=== PATIENT | male | born 1995 | race Caucasian/White ===

== ENCOUNTER 2018-03-19 12:01 | Emergency (ER) | payer BC ==
--- NOTE | 2018-03-19 12:15 | EDPHY ---
H & P Stated Complaint: R flank pain, nausea, poss syncopal episode last night hit forehead Time Seen by Provider: 03/19/18 12:14 HPI/ROS: HPI: This is a 23-year-old male who presents with Chief Complaint: R flank pain, nausea, poss syncopal episode last night hit forehead Location: Right flank Quality: Pain Duration: 24 hr Signs and Symptoms: no fever, + nausea, + vomiting, no hematemesis, no blood in stool, no abdominal bloating, no diarrhea, + back pain, no urinary symptoms, no testicular/groin pain, no indigestion, no chest pain, no shortness of breath Timing: Acute, constant Severity: Moderate Context: Patient presents with sudden onset of right flank pain that started yesterday afternoon and that remains constant, moderate in intensity. Patient reports that he has nausea and has vomited 2 times his stomach contents. He reports that he has urinary hesitancy. He was trying to urinate yesterday evening and felt extreme pain and started to feel lightheaded and hit his forehead on the wall. Denies LOC, amnesia, neck pain. Patient reports that he has a history of kidney stones and last 1 being 2 years ago. No history of lithotripsy or ureteral stent. Does not have a urologist. Denies fever. Advises that tetanus is current. Had a bowel movement yesterday. 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 Modifying Factors: None Comment: ROS: A comprehensive 10 system review of systems is otherwise negative aside from elements mentioned in the history of present illness. MEDICAL/SURGICAL/SOCIAL HISTORY: Medical history: Depression, kidney stone Surgical history: Denies Social history: Smoker. Denies drug use. Family history noncontributory. CONSTITUTIONAL: Moderate distress, nontoxic-appearing, adult white male, awake and alert HEENT: Superficial well-healing abrasion noted to left forehead; no surrounding erythema; no active bleeding. normocephalic, PERRL, EOMI. Nares patent; no rhinorrhea; no nasal mucosal edema. Tympanic membranes clear. Oropharynx clear, extremely poor dentition with dental cavities throughout, no exudate and moist pink mucosa. Airway patent. No lymphadenopathy. No meningismus. Cardiovascular: Normal S1/S2, regular rate, regular rhythm, without murmur rub or gallop. PULMONARY/CHEST: Symmetrical and nontender. Clear to auscultation bilaterally. Good air movement. No accessory muscle usage. ABDOMEN: Soft, nondistended, moderate right flank tenderness, no right lower quadrant tenderness, no rebound, no guarding, no peritoneal signs, no masses or organomegaly. No CVAT. Bowel Sounds heard x4 quadrants. EXTREMITIES: 2/2 pulses, strength 5/5, no deformities, no clubbing, no cyanosis or edema. NEUROLOGICAL: no focal neuro deficits. GCS 15. SKIN: Warm and dry, no erythema. no rash. Good capillary refill. Source: Patient Exam Limitations: No limitations - Medical/Surgical History Hx Asthma: No Hx Chronic Respiratory Disease: No Hx Diabetes: No Hx Cardiac Disease: No Hx Renal Disease: No Hx Cirrhosis: No Hx Alcoholism: No Hx HIV/AIDS: No Hx Splenectomy or Spleen Trauma: No Other PMH: denies - Social History Smoking Status: Current every day smoker Constitutional: Initial Vital Signs Temperature (C) 37.0 C 03/19/18 12:03 Heart Rate 78 03/19/18 12:03 Respiratory Rate 16 03/19/18 12:03 Blood Pressure 118/82 H 03/19/18 12:03 O2 Sat (%) 97 03/19/18 12:03 O2 Delivery Mode Room Air Allergies/Adverse Reactions: No Known Allergies Allergy (Unverified 03/19/18 12:02) Home Medications: Medication Instructions Recorded Gabapentin 03/19/18 Zoloft 25mg (*) 03/19/18 Medical Decision Making - Diagnostics Imaging Results: Imaging Impressions Abdomen/Pelvis CT 03/19/18 12:44 IMPRESSION: 1. No acute abdominopelvic inflammatory mass or ascites 2. No evidence of radiopaque nephrolithiasis. Attention: This CT examination is specifically designed to evaluate patients who are clinically suspected of having acute obstructive uropathy. This examination does not use radiographic contrast and provides only a limited evaluation of the abdomen, pelvis and retroperitoneum. If there is further clinical suspicion for pathological conditions other than obstructive uropathy, a complete CT evaluation of the abdomen and pelvis utilizing intravenous and enteric contrast should be considered. Susan Sims was notified of these findings by telephone at 1:45 PM on 03/19/2018 ED Course/Re-evaluation: Vital signs reviewed and stable upon arrival. No systemic signs. IV access and laboratory studies obtain. Urinalysis and CT abdomen and pelvis without contrast ordered Given IV Toradol 30 mg, IV promethazine 12.5 mg Labs reviewed. No leukocytosis/anemia/platelet dysfunction/elevated LFTs/ pancreatitis 1340: Called by radiologist who advised that there is no signs of appendicitis , stone, obstruction, colitis, hydronephrosis. 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 1348: Reassessed patient. Reports adequate relief of pain. Still not able to give urine sample. Will give another 1 L normal saline Urinalysis shows no signs of infection, no hematuria. Advised supportive care and follow up with PCP. This patient was seen under the supervision of my secondary supervising physician. I evaluated care for this patient independently. Discussed this patient with Dr. Landers. Differential Diagnosis: Flank pain including but not limited to musculoskeletal causes, kidney stone, pyelonephritis, shingles, and intra-abdominal causes such as diverticulitis and appendicitis. - Data Points Laboratory Results: Laboratory Results 03/19/18 11:50 03/19/18 11:50 03/19/18 03/19/18 03/19/18 14:00 11:50 11:50 WBC 8.12 10^3/uL 10^3/uL (3.80-9.50) RBC 5.02 10^6/uL 10^6/uL (4.40-6.38) Hgb 16.1 g/dL g/dL (13.7-17.5) Hct 45.2 % % (40.0-51.0) MCV 90.0 fL fL (81.5-99.8) MCH 32.1 pg pg (27.9-34.1) MCHC 35.6 g/dL g/dL (32.4-36.7) RDW 12.6 % % (11.5-15.2) Plt Count 212 10^3/uL 10^3/uL (150-400) MPV 10.3 fL fL (8.7-11.7) Neut % (Auto) 63.3 % % (39.3-74.2) Lymph % (Auto) 27.3 % % (15.0-45.0) [place] % (Auto) 5.7 % % (4.5-13.0) Eos % (Auto) 2.8 % % (0.6-7.6) Baso % (Auto) 0.5 % % (0.3-1.7) Nucleat RBC Rel Count 0.0 % % (0.0-0.2) Absolute Neuts (auto) 5.14 10^3/uL 10^3/uL (1.70-6.50) Absolute Lymphs (auto) 2.22 10^3/uL 10^3/uL (1.00-3.00) Absolute Monos (auto) 0.46 10^3/uL 10^3/uL (0.30-0.80) Absolute Eos (auto) 0.23 10^3/uL 10^3/uL (0.03-0.40) Absolute Basos (auto) 0.04 10^3/uL 10^3/uL (0.02-0.10) Absolute Nucleated RBC 0.00 10^3/uL 10^3/uL (0-0.01) Immature Gran % 0.4 % % (0.0-1.1) Immature Gran # 0.03 10^3/uL 10^3/uL (0.00-0.10) Sodium 140 mEq/L mEq/L (135-145) Potassium 4.4 mEq/L mEq/L (3.3-5.0) Chloride 103 mEq/L mEq/L (97-110) Carbon Dioxide 26 mEq/l mEq/l (22-31) Anion Gap 11 mEq/L mEq/L (6-14) BUN 10 mg/dL mg/dL (7-23) Creatinine 0.9 mg/dL mg/dL (0.7-1.3) Estimated GFR > 60 Glucose 84 mg/dL mg/dL (70-100) Calcium 9.5 mg/dL mg/dL (8.5-10.4) Total Bilirubin 0.3 mg/dL mg/dL (0.1-1.4) Conjugated Bilirubin 0.2 mg/dL mg/dL (0.0-0.5) Unconjugated Bilirubin 0.1 mg/dL mg/dL (0.0-1.1) AST 22 IU/L IU/L (17-59) ALT 21 IU/L IU/L (21-72) Alkaline Phosphatase 75 IU/L IU/L (38-126) Total Protein 7.6 g/dL g/dL (6.3-8.2) Albumin 4.7 g/dL g/dL (3.5-5.0) Lipase 84 IU/L IU/L (23-300) Urine Color YELLOW Urine Appearance CLEAR Urine pH 6.0 (5.0-7.5) Ur Specific [place] 1.015 (1.002-1.030) Urine Protein NEGATIVE (NEGATIVE) Urine Ketones NEGATIVE (NEGATIVE) Urine Blood NEGATIVE (NEGATIVE) Urine Nitrate NEGATIVE (NEGATIVE) Urine Bilirubin NEGATIVE (NEGATIVE) Urine Urobilinogen NEGATIVE EU EU (0.2-1.0) Ur Leukocyte Esterase NEGATIVE (NEGATIVE) Urine Glucose NEGATIVE (NEGATIVE) Medications Given: Discontinued Medications Sodium Chloride (Ns) 1,000 mls @ 0 mls/hr IV EDNOW ONE; Wide Open PRN Reason: Protocol Stop: 03/19/18 12:28 Last Admin: 03/19/18 12:56 Dose: 1,000 mls Sodium Chloride (Ns) 1,000 mls @ 0 mls/hr IV EDNOW ONE; Wide Open PRN Reason: Protocol Stop: 03/19/18 13:51 Last Admin: 03/19/18 14:22 Dose: Not Given Ketorolac Tromethamine (Toradol) 30 mg IVP EDNOW ONE Stop: 03/19/18 12:44 Last Admin: 03/19/18 13:00 Dose: 30 mg Promethazine HCl (Phenergan) 12.5 mg IVP ONCE ONE Stop: 03/19/18 12:44 Last Admin: 03/19/18 12:57 Dose: 12.5 mg Departure - Departure Disposition: Home, Routine, Self-Care Clinical Impression: Acute right flank pain Condition: Good Instructions: Acute Abdominal Pain (ED) Additional Instructions: Consume a minimum of 8-10 glasses of water or electrolyte fluid replacement drinks that include Gatorade, Powerade, Pedialyte. Eat a bland diet for the next 48 hours and then slowly advance as tolerated. Take Tylenol 650 mg every 4 hr and/or ibuprofen 600 mg every 8 hr as needed for pain. Take simethicone/Mylicon as needed for abdominal gas pain. Return to the Emergency Room if symptoms do not resolve in the next 48-72 hours , you spike a fever > 102 F, or experience intractable abdominal pain/nausea/ vomiting. Referrals: Jennifer Wade MD [Primary Care Provider] - 2-3 days, if not improved
[2018-03-19] MEDS ORDERED: NS 1,000 ML IV ONE ×2 (12:27→13:50)
[2018-03-19] MEDS ORDERED: KETOROLAC 30 MG/1 ML SDV IVP ONE (12:43)
[2018-03-19] MEDS ORDERED: PROMETHAZINE HCL 25 MG/ML INJ IVP ONE (12:43)
[2018-03-19 13:23] LABS: PLATELET COUNT 212 10^3/uL (150-400)
[2018-03-19 14:29] VITALS: BP 116/75
== END 2018-03-19 14:27 | disposition home or self-care (01) ==
DX: R10.9 Unspecified abdominal pain (principal); R11.0 Nausea; R55 Syncope and collapse; E86.9 Volume depletion, unspecified; F17.200 Nicotine dependence, unspecified, uncomplicated
CPT/HCPCS: 96374; J1885; J2550